=== PATIENT | male | born 1965 | race Asian ===

== ENCOUNTER 2022-05-25 09:31 | Emergency (ER) | payer BC ==
[~2022-05-25] VITALS: Ht 160 cm; Wt 53.6 kg
[2022-05-25 09:54] LABS: COVID AG,FIA SOURCE NASAL SWAB
[2022-05-25 10:59] VITALS: BP 143/79
[2022-05-25] MEDS ORDERED: NIRM1TAB PO (11:02)
== END 2022-05-25 11:12 | disposition home or self-care (01) ==
LOC: EMS 09:39
DX: U07.1 COVID-19 (principal)
CPT/HCPCS: 99283